=== PATIENT | female | born 1980 | race Native Hawaiian/Other Pacific Islander ===

== ENCOUNTER 2016-08-15 14:06 | Emergency (ER) | payer OTHER ==
[~2016-08-15] VITALS: Ht 182.9 cm; Wt 181.4 kg
== END 2016-08-15 15:28 | disposition home or self-care (01) ==
LOC: ED 14:06
DX: K04.7 Periapical abscess without sinus (principal)
CPT/HCPCS: 96372; 99283; J0696; J1885; J2175